=== PATIENT | male | born 1960 | race Two or more races ===

== ENCOUNTER 2016-08-30 15:36 | Emergency (ER) | payer OTHER ==
[2016-08-30 16:32] LABS: SPECIFIC GRAVITY 1.015 (1.001-1.030); URINE BILIRUBIN NEGATIVE (NEGATIVE); URINE BLOOD TRACE (NEGATIVE); URINE GLUCOSE (UA) NEGATIVE (NEGATIVE); URINE LEUKOCYTE ESTERASE TRACE (NEGATIVE); URINE NITRITE NEGATIVE (NEGATIVE); URINE PROTEIN 1+ (NEGATIVE); URINE UROBILINOGEN 1 mg/dL (0-1 mg/dl)
[2016-08-30 16:33] LABS: URINE APPEARANCE CLEAR; URINE COLOR DARK YELLOW
[2016-08-30 16:42] LABS: URINE WBC 40-50 /hpf
[2016-08-30 16:43] LABS: URINE BACTERIA FEW
[2016-08-30] MEDS ORDERED: LEVOFLOXACIN 250 MG TABLET ONE (17:52)
== END 2016-08-30 19:11 | disposition home or self-care (01) ==
LOC: ED 15:36
DX: N39.0 Urinary tract infection, site not specified (principal); E11.9 Type 2 diabetes mellitus without complications; F17.210 Nicotine dependence, cigarettes, uncomplicated; Z79.84 Long term (current) use of oral hypoglycemic drugs
CPT/HCPCS: 87086; 81001; 99283 ×2; 51798; A9270